=== PATIENT | male | born 1975 | race Caucasian/White ===

== ENCOUNTER 2017-05-30 04:10 | Emergency (ER) | payer BC ==
[~2017-05-30] VITALS: Ht 172.7 cm; Wt 72.7 kg
[2017-05-30 04:15] VITALS: TEMP 98.2
[2017-05-30] MEDS ORDERED: NORCO 325 MG-51 TAB PO (05:31)
[2017-05-30 06:09] VITALS: BP 131/81; PULSE 94
== END 2017-05-30 06:09 | disposition home or self-care (01) ==
LOC: COL.ER 04:10
DX: T23.241A Burn of second degree of multiple right fingers (nail), including thumb, initial encounter (principal); W39.XXXA Discharge of firework, initial encounter; X08.8XXA Exposure to other specified smoke, fire and flames, initial encounter; Y92.008 Other place in unspecified non-institutional (private) residence as the place of occurrence of the external cause
CPT/HCPCS: J1885